=== PATIENT | female | born 1990 | race Caucasian/White ===

== ENCOUNTER 2016-11-13 19:18 | Emergency (ER) | payer BC ==
[2016-11-13 19:57] VITALS: BP 129/80; PULSE 94; RESP 18; TEMP 97.1
[2016-11-13] MEDS ORDERED: KETOROLAC 30 MG/ML 1 ML VIAL IM STA (20:20)
--- NOTE | 2016-11-13 20:27 | ED ---
Back Pain HPI - General Chief Complaint: Back Pain/Injury Stated Complaint: Sciatica Time Seen by Provider: 11/13/16 20:08 Source: patient Limitations: no limitations - History of Present Illness Initial Comments: Patient is a 26-year-old white female presenting to the emergency department with 2 day onset lumbar sacral pain radiating down her left leg to below her knees. Onset of symptoms 2 days ago. MD Complaint: back pain Onset/Timin -: days(s) Similar Symptoms Previously: Yes Place: other (Unsure when symptoms started) Radiation: right leg Severity: severe Severity scale (1-10): 10 Quality: burning, tingling Consistency: constant Improves With: immobilization Worsens With: walking Context: unknown Associated Symptoms: denies other symptoms Treatments Prior to Arrival: prescription analgesics - Related Data Home Medications Medication Instructions Recorded Confirmed Glucosamine/Chondro Mendes A 1 each PO DAILY 11/13/16 11/13/16 [Glucosamine-Chondroitin Tab] Ibuprofen 800 mg PO TID PRN 11/13/16 11/13/16 Norgestimate-Ethinyl Estradiol 1 each PO DAILY 11/13/16 11/13/16 [Ortho Tri-Cyclen Lo Tablet] [place]-3 Fatty Acids/Fish Oil [Fish 1 each PO DAILY 11/13/16 11/13/16 Oil 1,000 mg Capsule] Omeprazole 20 mg PO DAILY 11/13/16 11/13/16 Previous Rx's Medication Instructions Recorded HYDROcodone/APAP 5-325MG [[place] 1 tab PO Q4HR PRN #12 tab 11/13/16 5-325] Methocarbamol [Robaxin] 500 mg PO TID PRN #12 11/13/16 predniSONE 50 mg PO DAILY #5 tablet 11/13/16 Allergies Allergy/AdvReac Type Severity Reaction Status Date / Time No Known Allergies Allergy Verified 11/13/16 19:57 Review of Systems ROS Statement: Those systems with pertinent positive or pertinent negative responses have been documented in the HPI. ROS Other: All systems not noted in ROS Statement are negative. Past Medical History Past Medical History: GERD/Reflux Additional Past Medical History / Comment(s): Back Pain; TMJ History of Any Multi-Drug Resistant Organisms: None Reported Past Surgical History: No Surgical Hx Reported Past Psychological History: No Psychological Hx Reported Smoking Status: Former smoker Past Alcohol Use History: Occasional Past Drug Use History: None Reported General Exam Limitations: no limitations General appearance: alert, in no apparent distress Head exam: Present: atraumatic, normocephalic, normal inspection Eye exam: Present: normal appearance ENT exam: Present: normal exam, mucous membranes moist Neck exam: Present: normal inspection, full ROM. Absent: tenderness, lymphadenopathy Respiratory exam: Present: normal lung sounds bilaterally. Absent: respiratory distress, wheezes, rales, rhonchi, stridor Cardiovascular Exam: Present: regular rate, normal rhythm, normal heart sounds. Absent: systolic murmur, diastolic murmur, rubs, gallop, clicks GI/Abdominal exam: Present: soft, normal bowel sounds. Absent: distended, tenderness, guarding, rebound, rigid Right Hip exam: Present: normal inspection, full ROM. Absent: tenderness, swelling Upper Leg exam: Present: normal inspection, full ROM. Absent: tenderness, swelling Knee exam: Present: normal inspection, full ROM. Absent: tenderness, swelling Lower Leg exam: Present: normal inspection, full ROM. Absent: tenderness, swelling Ankle exam: Present: normal inspection, full ROM. Absent: tenderness, swelling Foot/Toe exam: Present: normal inspection, full ROM. Absent: tenderness, swelling Neurovascular tendon exam: Present: no vascular compromise. Absent: motor deficit, sensory deficit, tendon deficit, extremity cold to touch, abnormal 2- point discrimination, foot drop Gait: observed and normal Back exam: Present: normal inspection, tenderness (Point tenderness to left lower lumbar region), paraspinal tenderness. Absent: full ROM (Pain with active range of motion), CVA tenderness (R), CVA tenderness (L) Expanded Back exam: Absent: saddle anesthesia Back exam: Sciatic Notch Tenderness: Left Neurological exam: Present: alert, oriented X3, normal gait, other (No focal deficits noted). Absent: motor sensory deficit Psychiatric exam: Present: normal affect, normal mood Skin exam: Present: warm, dry, intact, normal color. Absent: rash Course Vital Signs 11/13/16 19:53 Temperature 97.1 F L Pulse Rate 94 Respiratory 18 Rate Blood Pressure 129/80 O2 Sat by Pulse 98 Oximetry Medical Decision Making - Medical Decision Making Lumbar radiculopathy. Patient given prescription for muscle relaxant, steroids , and pain medicine. Patient started to follow-up with orthopedic service. Patient agrees with treatment plan. No red flags present. Discharge instructions and return parameters reviewed. Disposition Clinical Impression: Lumbar radiculopathy Disposition: HOME SELF-CARE Condition: Good Instructions: Lumbar Radiculopathy (ED), Lower Back Exercises (ED) Additional Instructions: Please return to the emergency department if symptoms do not improve or get worse. Follow-up with primary care physician in a week and orthopedic surgeon if needed. Continue prescribed medications for pain as needed. May apply warm or cold compresses for comfort. Prescriptions: HYDROcodone/APAP 5-325MG [[place] 5-325] 1 tab PO Q4HR PRN #12 tab PRN Reason: Pain Methocarbamol [Robaxin] 500 mg PO TID PRN #12 PRN Reason: muscle spasm predniSONE 50 mg PO DAILY #5 tablet Referrals: Jennifer aGrcia MD [Primary Care Provider] - 1-2 days Molina Martinez PAC [PHYSICIAN CIT[employer] [facility]IST] - 1-2 days Time of Disposition: 20:27
== END 2016-11-13 20:43 | disposition home or self-care (01) ==
LOC: EC 19:18
DX: M54.16 Radiculopathy, lumbar region (principal); K21.9 Gastro-esophageal reflux disease without esophagitis; Z87.891 Personal history of nicotine dependence; Z79.3 Long term (current) use of hormonal contraceptives; Z79.899 Other long term (current) drug therapy
CPT/HCPCS: 99283; 96372; J1885

== ENCOUNTER 2017-10-12 21:05 | Emergency (ER) | payer OTHER ==
[2017-10-12 21:09] VITALS: BP 141/83; PULSE 98; RESP 20; TEMP 98.1
[2017-10-12] MEDS ORDERED: ORPHENADRINE 30 MG/ML 2 ML VIAL IM STA (21:32)
[2017-10-12] MEDS ORDERED: KETOROLAC 30 MG/ML 1 ML VIAL IM STA (21:32)
--- NOTE | 2017-10-12 21:51 | ED ---
General Adult HPI - General Chief complaint: Back Pain/Injury Stated complaint: back pain Time Seen by Provider: 10/12/17 21:10 Source: patient, RN notes reviewed Mode of arrival: ambulatory Limitations: no limitations - History of Present Illness Initial comments: 27-year-old female presents to the emergency department for a chief complaint of back pain 2 hours. Patient states she has a history of back pain for which [facility]. Patient denies any injuries causing the pain. She states she started noticing the pain when she was studying. She states this episode of pain is similar to the past episodes. Patient states it hurts most to stand up straight and feels better sitting. Patient denies any shooting pains down the legs. She denies any numbness or tingling in the legs. Patient denies any saddle anesthesia or bladder or bowel changes. Patient denies any chance of . Patient states she has had Toradol in the past which has helped. Patient states she's also had Robaxin which has helped to take the edge off as well. Patient denies any other complaints at this time. Patient denies any chance of . Patient denies shortness of breath, chest pain, abdominal pain, headaches, neck pain, nausea or vomiting. - Related Data Home Medications Medication Instructions Recorded Confirmed Glucosamine/Chondro Mendes A 1 each PO DAILY 11/13/16 11/13/16 [Glucosamine-Chondroitin Tab] Ibuprofen 800 mg PO TID PRN 11/13/16 11/13/16 Norgestimate-Ethinyl Estradiol 1 each PO DAILY 11/13/16 11/13/16 [Ortho Tri-Cyclen Lo Tablet] [place]-3 Fatty Acids/Fish Oil [Fish 1 each PO DAILY 11/13/16 11/13/16 Oil 1,000 mg Capsule] Omeprazole 20 mg PO DAILY 11/13/16 11/13/16 Previous Rx's Medication Instructions Recorded HYDROcodone/APAP 5-325MG [[place] 1 tab PO Q4HR PRN #12 tab 11/13/16 5-325] Methocarbamol [Robaxin] 500 mg PO TID PRN #12 11/13/16 predniSONE 50 mg PO DAILY #5 tablet 11/13/16 Ibuprofen [Motrin] 600 mg PO Q8HR PRN #20 tab 07/25/17 Methocarbamol [Robaxin-750] 750 mg PO TID PRN #30 tablet 07/25/17 Ibuprofen [Motrin] 600 mg PO Q8HR PRN #20 tab 10/12/17 Methocarbamol [Robaxin] 500 mg PO TID PRN #12 tab 10/12/17 Allergies Allergy/AdvReac Type Severity Reaction Status Date / Time No Known Allergies Allergy Verified 10/12/17 21:08 Review of Systems ROS Statement: Those systems with pertinent positive or pertinent negative responses have been documented in the HPI. ROS Other: All systems not noted in ROS Statement are negative. Past Medical History Past Medical History: GERD/Reflux Additional Past Medical History / Comment(s): Back Pain; TMJ History of Any Multi-Drug Resistant Organisms: None Reported Past Surgical History: No Surgical Hx Reported Additional Past Surgical History / Comment(s): wisdom teeth Past Psychological History: Anxiety Smoking Status: Former smoker Past Alcohol Use History: Occasional Past Drug Use History: None Reported General Exam Limitations: no limitations General appearance: alert, in no apparent distress Head exam: Present: atraumatic, normocephalic, normal inspection Eye exam: Present: normal appearance, PERRL, EOMI. Absent: scleral icterus, conjunctival injection, periorbital swelling Neck exam: Present: normal inspection, full ROM. Absent: tenderness, meningismus, lymphadenopathy Respiratory exam: Present: normal lung sounds bilaterally. Absent: respiratory distress, wheezes, rales, rhonchi, stridor Cardiovascular Exam: Present: regular rate, normal rhythm, normal heart sounds. Absent: systolic murmur, diastolic murmur, rubs, gallop, clicks Back exam: Present: paraspinal tenderness (Mild right sided lumbar tenderness). Absent: full ROM (Patient has limited range of motion of the low back. Patient has pain with extension.), tenderness, CVA tenderness (R), CVA tenderness (L), vertebral tenderness (No tenderness of the vertebrae from the cervical through the lumbar spine.) Neurological exam: Present: alert, oriented X3, CN II-XII intact Course Vital Signs 10/12/17 21:06 Temperature 98.1 F Pulse Rate 98 Respiratory 20 Rate Blood Pressure 141/83 O2 Sat by Pulse 100 Oximetry Medical Decision Making - Medical Decision Making 27-year-old female presents to the emergency department for a chief complaint of low back pain 2 hours. This is consistent with patient's past chronic back pain. Patient states she has a herniation at L4 for which she sees orthopedics. Patient denies any recent back injuries. Patient last had Motrin over 12 hours ago. Patient denies any chance of . Patient denies any saddle anesthesia or bladder or bowel changes. On exam patient has pain with extension of the low back and had a relief of pain with flexion. Patient was given a shot of Toradol and Norflex which helped with her pain. Patient was given a prescription for Motrin 600 and Robaxin. She is to [facility] with [facility] in one to 2 days. She is to return to the emergency Department if she has any worsening symptoms or bladder or bowel changes. Disposition Clinical Impression: Low back pain Disposition: HOME SELF-CARE Condition: Good Instructions: Acute Low Back Pain (ED) Additional Instructions: Please take ibuprofen and Robaxin as directed. Please follow-up with [facility] or primary care provider in one to 2 days. Return to the emergency department if you have any worsening symptoms or bladder or bowel changes. Prescriptions: Ibuprofen [Motrin] 600 mg PO Q8HR PRN #20 tab PRN Reason: Pain Methocarbamol [Robaxin] 500 mg PO TID PRN #12 tab PRN Reason: Pain Is patient prescribed a controlled substance at d/c from ED?: No Referrals: Jennifer Garcia MD [Primary Care Provider] - 1-2 days Time of Disposition: 21:49
== END 2017-10-12 22:23 | disposition home or self-care (01) ==
LOC: EC 21:05
DX: M54.5 Low back pain (principal); K21.9 Gastro-esophageal reflux disease without esophagitis; Z87.891 Personal history of nicotine dependence; Z79.3 Long term (current) use of hormonal contraceptives; Z79.899 Other long term (current) drug therapy
CPT/HCPCS: 99283; 96372 ×2; J2360; J1885

== ENCOUNTER 2018-10-24 16:00 | Emergency (ER) | payer OTHER ==
[2018-10-24] MEDS ORDERED: ONDANSETRON 4 MG/2 ML VIAL IVP STA (16:09)
[2018-10-24] MEDS ORDERED: SODIUM CHLORIDE 0.9% 500 ML 500 ML IV STA (16:09)
--- NOTE | 2018-10-24 16:13 | ED ---
General Adult HPI - General Chief complaint: Abdominal Pain Stated complaint: Gallbladder attack Time Seen by Provider: 10/24/18 16:05 Source: patient, RN notes reviewed, old records reviewed Mode of arrival: ambulatory - History of Present Illness Initial comments: 28-year-old female patient past medical history of TMJ disorder, chronic back pain presents ED approximately 2 days of right upper quadrant pain. Patient reports that she has right upper quadrant pain after eating. Patient reports some nausea without emesis. Patient denies any fevers or chills. Patient denies any previous issues with gallbladder or liver. Patient that she is not . Patient also has a secondary complaint of some minor pain in right shoulder which has been ongoing for approximately 2 days. Patient denies any injury. Patient denies any injuries. Patient denies any chest pain or s hortness of breath. Patient denies all other complaints. Systemic: Pt denies fatigue, myalgia, fever/chills, rash. Pt denies weakness, night sweats, weight loss. Neuro: Pt denies headache, visual disturbances, syncope or pre-syncope. HEENT: Pt denies ocular discharge or irritation, otalgia, rhinorrhea, pharyngitis or notable lymphadenopathy. Cardiopulmonary: Pt denies chest pain, SOB, heart palpitations, dyspnea on exertion. Abdominal/GI: Pt denies vomitting and diarrhea. : Pt denies dysuria, burning w/ urination, frequency/urgency. Denies new onset urinary or bowel incontinence. MSK: Pt denies myalgia, loss of strength or function in extremities. Neuro: Pt denies new onset weakness, paresthesias. - Related Data Home Medications Medication Instructions Recorded Confirmed Ibuprofen 400 mg PO Q6H PRN 11/13/16 10/24/18 Omeprazole 20 mg PO DAILY 11/13/16 10/24/18 Tri-Linya 1 tab PO HS 10/24/18 10/24/18 Allergies Allergy/AdvReac Type Severity Reaction Status Date / Time No Known Allergies Allergy Verified 10/24/18 16:15 Review of Systems ROS Statement: Those systems with pertinent positive or pertinent negative responses have been documented in the HPI. ROS Other: All systems not noted in ROS Statement are negative. Past Medical History Past Medical History: GERD/Reflux Additional Past Medical History / Comment(s): Back Pain; TMJ History of Any Multi-Drug Resistant Organisms: None Reported Past Surgical History: No Surgical Hx Reported Additional Past Surgical History / Comment(s): wisdom teeth Past Psychological History: Anxiety Smoking Status: Former smoker Past Alcohol Use History: Occasional Past Drug Use History: None Reported General Exam - General Exam Comments Initial Comments: Constitutional: NAD, AOX3, Pt has pleasant affect. HEENT: NC/AT, trachea midline, neck supple, no lymphadenopathy. Posterior pharynx non erythematous, without exudates. External ears appear normal, without discharge. Mucous membranes moist. Eyes PERRLA, EOM intact. There is no scleral icterus. No pallor noted. Cardiopulmonary: RRR, no murmurs, rubs or gallops, no JVD noted. Lungs CTAB in anterior and posterior boateng. No peripheral edema. Abdominal exam: Abdomen soft and non-distended. Very mild tenderness to palpation right upper quadrant. Leblanc sign negative. No ecchymoses, no guarding or rigidity. Bowel sounds active in LLQ. No hepatosplenomegaly. No ecchymosis Neuro: CN II-XII grossly intact. No nuchal rigidity. MSK: Full active range of motion of shoulder, no tenderness to palpation. No posterior calf tenderness bilaterally, homans sign negative bilaterally. Posterior tibialis and radial pulse +2 bilaterally. Sensation intact in upper and lower extremities. Full active ROM in upper and lower extremities, 5/5 stregnth. Course Vital Signs 10/24/18 16:02 Temperature 98 F Pulse Rate 100 Respiratory 20 Rate Blood Pressure 153/92 O2 Sat by Pulse 99 Oximetry Medical Decision Making - Medical Decision Making 28-year-old female patient past medical history of TMJ disorder, chronic back pain presents ED approximately 2 days of right upper quadrant pain. Patient re ports that she has right upper quadrant pain after eating. Patient reports some nausea without emesis. Patient denies any fevers or chills. Patient denies any previous issues with gallbladder or liver. Patient that she is not . Patient also has a secondary complaint of some minor pain in right shoulder which has been ongoing for approximately 2 days. Patient denies any injury. Patient denies any injuries. Patient denies any chest pain or shortness of breath. Patient denies all other complaints. Pt VSS, afebrile. Physical exam displayed: very mild tenderness to palpation right upper quadrant. Leblanc sign negative. Laboratory investigations non-impressive. Lactic acid within normal limits. Ultrasound of gallbladder displayed a reported sonographic Leblanc's sign, however no other findings consistent with cholecystitis. Negative for cholelithiasis. Liver function tests and alk phos are within normal limits. Shared decision making, patient will discharge with close outpatient follow-up. Patient will follow up with primary care provider tomorrow. Patient return to ER immediately if condition worsens in any way. Case discussed with Dr. Santo. - Lab Data Result diagrams: 10/24/18 16:15 10/24/18 16:15 Lab Results 10/24/18 10/24/18 10/24/18 Range/Units 16:15 16:15 16:15 WBC 10.3 (3.8-10.6) k/uL RBC 4.36 (3.80-5.40) m/uL Hgb 13.0 (11.4-16.0) gm/dL Hct 39.3 (34.0-46.0) % MCV 90.1 (80.0-100.0) fL MCH 29.7 (25.0-35.0) pg MCHC 33.0 (31.0-37.0) g/dL RDW 13.2 (11.5-15.5) % Plt Count 409 (150-450) k/uL Neutrophils % 58 % Lymphocytes % 33 % Monocytes % 4 % Eosinophils % 2 % Basophils % 0 % Neutrophils # 5.9 (1.3-7.7) k/uL Lymphocytes # 3.4 (1.0-4.8) k/uL Monocytes # 0.4 (0-1.0) k/uL Eosinophils # 0.2 (0-0.7) k/uL Basophils # 0.0 (0-0.2) k/uL Sodium 137 (137-145) mmol/L Potassium 4.2 (3.5-5.1) mmol/L Chloride 106 (98-107) mmol/L Carbon Dioxide 22 (22-30) mmol/L Anion Gap 9 mmol/L BUN 10 (7-17) mg/dL Creatinine 0.61 (0.52-1.04) mg/dL Est GFR (CKD-EPI)AfAm >90 (>60 ml/min/1.73 sqM) Est GFR (CKD-EPI)NonAf >90 (>60 ml/min/1.73 sqM) Glucose 97 (74-99) mg/dL Plasma Lactic Acid Geo (0.7-2.0) mmol/L Calcium 9.5 (8.4-10.2) mg/dL Total Bilirubin 0.5 (0.2-1.3) mg/dL AST 35 (14-36) U/L ALT 44 (9-52) U/L Alkaline Phosphatase 70 (38-126) U/L Total Protein 7.4 (6.3-8.2) g/dL Albumin 4.5 (3.5-5.0) g/dL Lipase 104 (23-300) U/L Urine Color Urine Appearance (Clear) Urine pH (5.0-8.0) Ur Specific [place] (1.001-1.035) Urine Protein (Negative) Urine Glucose (UA) (Negative) Urine Ketones (Negative) Urine Blood (Negative) Urine Nitrite (Negative) Urine Bilirubin (Negative) Urine Urobilinogen (<2.0) mg/dL Ur Leukocyte Esterase (Negative) Urine HCG, Qual Not Detected (Not Detectd) 10/24/18 10/24/18 Range/Units 16:15 16:15 WBC (3.8-10.6) k/uL RBC (3.80-5.40) m/uL Hgb (11.4-16.0) gm/dL Hct (34.0-46.0) % MCV (80.0-100.0) fL MCH (25.0-35.0) pg MCHC (31.0-37.0) g/dL RDW (11.5-15.5) % Plt Count (150-450) k/uL Neutrophils % % Lymphocytes % % Monocytes % % Eosinophils % % Basophils % % Neutrophils # (1.3-7.7) k/uL Lymphocytes # (1.0-4.8) k/uL Monocytes # (0-1.0) k/uL Eosinophils # (0-0.7) k/uL Basophils # (0-0.2) k/uL Sodium (137-145) mmol/L Potassium (3.5-5.1) mmol/L Chloride (98-107) mmol/L Carbon Dioxide (22-30) mmol/L Anion Gap mmol/L BUN (7-17) mg/dL Creatinine (0.52-1.04) mg/dL Est GFR (CKD-EPI)AfAm (>60 ml/min/1.73 sqM) Est GFR (CKD-EPI)NonAf (>60 ml/min/1.73 sqM) Glucose (74-99) mg/dL Plasma Lactic Acid Geo 1.0 (0.7-2.0) mmol/L Calcium (8.4-10.2) mg/dL Total Bilirubin (0.2-1.3) mg/dL AST (14-36) U/L ALT (9-52) U/L Alkaline Phosphatase (38-126) U/L Total Protein (6.3-8.2) g/dL Albumin (3.5-5.0) g/dL Lipase (23-300) U/L Urine Color Light Yellow Urine Appearance Clear (Clear) Urine pH 5.5 (5.0-8.0) Ur Specific [place] 1.011 (1.001-1.035) Urine Protein Negative (Negative) Urine Glucose (UA) Negative (Negative) Urine Ketones Negative (Negative) Urine Blood Negative (Negative) Urine Nitrite Negative (Negative) Urine Bilirubin Negative (Negative) Urine Urobilinogen <2.0 (<2.0) mg/dL Ur Leukocyte Esterase Negative (Negative) Urine HCG, Qual (Not Detectd) Disposition Clinical Impression: Abdominal pain Disposition: HOME SELF-CARE Condition: Stable Instructions (If sedation given, give patient instructions): Abdominal Pain (ED) Additional Instructions: Patient to adhere to previously discussed treatment plan and will take medication(s) as directed. Patient to follow up with PCP in 1-2 days. Patient to return to ED if symptoms do not improve. Follow-up with primary care provider tomorrow. Return immediately to ER if condition worsens or pain returns. Is patient prescribed a controlled substance at d/c from ED?: No Referrals: Jennifer Garcia MD [Primary Care Provider] - 1-2 days
[2018-10-24 16:37] LABS: Appearance,Urine Clear (Clear); Bilirubin,Urine Negative (Negative); Blood,Urine Negative (Negative); Color,Urine Light Yellow; Glucose,Urine (UA) Negative (Negative); Ketones,Urine Negative (Negative); Leukocyte Esterase,Urine Negative (Negative); Nitrite,Urine Negative (Negative); PH, Urine 5.5 (5.0-8.0); Protein,Urine Negative (Negative); Specific Gravity,Urine 1.011 (1.001-1.035); Urobilinogen,Urine <2.0 mg/dL (<2.0)
[2018-10-24 16:40] LABS: ALT 44 U/L (9-52); AST 35 U/L (14-36); Albumin 4.5 g/dL (3.5-5.0); Alkaline Phosphatase 70 U/L (38-126); Anion Gap 9 mmol/L; Blood Urea Nitrogen 10 mg/dL (7-17); Calcium 9.5 mg/dL (8.4-10.2); Carbon Dioxide 22 mmol/L (22-30); Chloride 106 mmol/L (98-107); Glucose 97 mg/dL (74-99); Lipase 104 U/L (23-300); Potassium 4.2 mmol/L (3.5-5.1); Sodium 137 mmol/L (137-145); Total Bilirubin 0.5 mg/dL (0.2-1.3); Total Protein 7.4 g/dL (6.3-8.2)
[2018-10-24 16:51] LABS: Basophils % (A) 0 %; Eosinophils # (A) 0.2 k/uL (0-0.7); Eosinophils % (A) 2 %; HCT 39.3 % (34.0-46.0); Lymphocytes # (A) 3.4 k/uL (1.0-4.8); Lymphocytes % (A) 33 %; MCH 29.7 pg (25.0-35.0); MCV 90.1 fL (80.0-100.0); Mean Platelet Volume 7.6; Monocytes # (A) 0.4 k/uL (0-1.0); Monocytes % (A) 4 %; Neutrophils # (A) 5.9 k/uL (1.3-7.7); Neutrophils % (A) 58 %; Platelet Count 409 k/uL (150-450); RBC 4.36 m/uL (3.80-5.40); RDW 13.2 % (11.5-15.5); WBC 10.3 k/uL (3.8-10.6)
--- NOTE | 2018-10-24 16:59 | US ---
EXAMINATION TYPE: US gallbladder DATE OF EXAM: 10/24/2018 COMPARISON: NONE CLINICAL HISTORY: Pain. RUQ pain and nausea, GERD EXAM MEASUREMENTS: Liver Length: 17.0 cm Gallbladder Wall: 0.3 cm CBD: 0.5 cm (top normal caliber is 0.6 mm) Right Kidney: 10.0 x 4.3 x 5.4 cm Pancreas: Obscured by bowel gas Liver: appears wnl as visualized Gallbladder: The gallbladder happens to be anatomically positioned quite close to the overlying skin. There is no evidence of cholelithiasis. Evidence for sonographic Leblanc's sign: Reportedly positive for sonographic Leblanc's sign. CBD: appears wnl Right Kidney: No evidence of hydronephrosis IMPRESSION: Reportedly positive sonographic Leblanc's sign, which is a sensitive but nonspecific sonographic findi ng. LFT correlation can add specificity. Negative for cholelithiasis or sonographic focal findings of cholecystitis.
[2018-10-24 17:46] VITALS: BP 133/87; PULSE 85; RESP 18; TEMP 98.9
== END 2018-10-24 17:49 | disposition home or self-care (01) ==
LOC: EC 16:00
DX: R10.11 Right upper quadrant pain (principal); R11.0 Nausea; M25.511 Pain in right shoulder; K21.9 Gastro-esophageal reflux disease without esophagitis; Z87.891 Personal history of nicotine dependence; Z79.3 Long term (current) use of hormonal contraceptives; Z79.899 Other long term (current) drug therapy
CPT/HCPCS: 36415; 80053; 83605; 83690; 85025; 81003; 81025; 76705; 99284; 96374; 96361; J2405

== ENCOUNTER → 2021-02-04 | Outpatient (CLI) | payer MEDICAID | END | disposition home or self-care (01) | LOC: LABWHC1 14:30 | PROVIDERS: ATTEND Emergency Medicine | DX: Z20.822 Contact with and (suspected) exposure to COVID-19 (principal) | CPT/HCPCS: 87635; C9803 ==

== ENCOUNTER → 2021-02-05 | Outpatient (CLI) | payer MEDICAID | END | disposition home or self-care (01) | LOC: LABWHC1 16:10 | PROVIDERS: ATTEND Emergency Medicine | DX: Z20.822 Contact with and (suspected) exposure to COVID-19 (principal) | CPT/HCPCS: U0003; C9803; U0005 ==

== ENCOUNTER 2022-04-03 22:33 | Emergency (ER) | payer MEDICAID, OTHER ==
[2022-04-03 22:44] VITALS: BP 130/66; PULSE 60; RESP 19; TEMP 98
== END 2022-04-03 22:46 | disposition home or self-care (01) ==
LOC: EC 22:33
DX: Z13.0 Encounter for screening for diseases of the blood and blood-forming organs and certain disorders involving the immune mechanism (principal)
CPT/HCPCS: 99499

== ENCOUNTER 2022-05-14 22:17 | Emergency (ER) | payer MEDICAID, OTHER ==
[2022-05-14 23:11] VITALS: RESP 16
[2022-05-15] MEDS ORDERED: methylPREDNISolone SOD SUCCI 125 MG/2 ML VIAL IV STA (00:02)
[2022-05-15] MEDS ORDERED: diphenhydrAMINE 50 MG/ML 1 ML VIAL IVP STA (00:02)
[2022-05-15] MEDS ORDERED: SODIUM CHLORIDE 0.9% 1,000 ML IV STA (00:02)
[2022-05-15] MEDS ORDERED: FAMOTIDINE 20 MG/2 ML VIAL IV STA (00:02)
[2022-05-15 00:22] LABS: Basophils % (A) 0 %; Eosinophils # (A) 0.1 k/uL (0-0.7); Eosinophils % (A) 1 %; HCT 38.3 % (34.0-46.0); HGB 13.3 gm/dL (11.4-16.0); Lymphocytes # (A) 2.9 k/uL (1.0-4.8); Lymphocytes % (A) 28 %; MCH 31.6 pg (25.0-35.0); MCHC 34.7 g/dL (31.0-37.0); MCV 90.9 fL (80.0-100.0); Mean Platelet Volume 8.1; Monocytes # (A) 0.4 k/uL (0-1.0); Monocytes % (A) 4 %; Neutrophils # (A) 6.7 k/uL (1.3-7.7); Neutrophils % (A) 64 %; Platelet Count 357 k/uL (150-450); RBC 4.22 m/uL (3.80-5.40); RDW 13.1 % (11.5-15.5); WBC 10.4 k/uL (3.8-10.6)
[2022-05-15 01:11] LABS: ALT 41 U/L (4-34); African American GFR (CKD) >90 (>60 ml/min/1.73 sqM); Albumin 4.6 g/dL (3.5-5.0); Anion Gap 9 mmol/L; Blood Urea Nitrogen 12 mg/dL (7-17); Glucose 106 mg/dL (74-99); Non-African American GFR(CKD) >90 (>60 ml/min/1.73 sqM); Potassium 3.9 mmol/L (3.5-5.1); Sodium 138 mmol/L (137-145); Total Bilirubin 0.3 mg/dL (0.2-1.3); Total Protein 7.4 g/dL (6.3-8.2)
--- NOTE | 2022-05-15 01:35 | ED ---
General Adult HPI - General Chief complaint: Allergic Reaction Stated complaint: Dizziness,weakness Time Seen by Provider: 05/14/22 23:08 Source: patient, RN notes reviewed Mode of arrival: ambulatory Limitations: no limitations - History of Present Illness Initial comments: 31-year-old female presents to the emergency Department with complaints of rash resulting from an ALLERGIC reaction to amoxicillin. Patient states she had taken 4 doses of amoxicillin prior to onset of rash. States she was prescribed this for strep throat. Amoxicillin was discontinued today and Zithromax was prescribed. States she continues to feel poorly. Describes an episode in which she had rapid shallow breathing followed by facial numbness and tremors in her arms. States these symptoms resolved prior to arrival but was concerned due to the rash and allergic reaction. Denies fever, chills, difficulty swallowing, difficulty breathing, nausea, and vomiting. - Related Data Home Medications Medication Instructions Recorded Confirmed Ibuprofen 400 mg PO Q6H PRN 11/13/16 10/24/18 Omeprazole 20 mg PO DAILY 11/13/16 10/24/18 Tri-Linya 1 tab PO HS 10/24/18 10/24/18 Allergies Allergy/AdvReac Type Severity Reaction Status Date / Time amoxicillin Allergy Rash/Hives Verified 05/14/22 22:28 Review of Systems ROS Statement: Those systems with pertinent positive or pertinent negative responses have been documented in the HPI. ROS Other: All systems not noted in ROS Statement are negative. Past Medical History Past Medical History: GERD/Reflux Additional Past Medical History / Comment(s): Back Pain; TMJ History of Any Multi-Drug Resistant Organisms: None Reported Past Surgical History: No Surgical Hx Reported Additional Past Surgical History / Comment(s): wisdom teeth Past Psychological History: Anxiety Smoking Status: Never smoker Past Alcohol Use History: Occasional Past Drug Use History: None Reported General Exam Limitations: no limitations General appearance: alert, in no apparent distress ENT exam: Present: normal exam, normal oropharynx, mucous membranes moist, other (no angioedema) Expanded Mouth exam: Present: normal external inspection Throat exam: normal inspection Respiratory exam: Present: normal lung sounds bilaterally. Absent: respiratory distress, wheezes, rales, rhonchi, stridor, chest wall tenderness Cardiovascular Exam: Present: regular rate, normal rhythm, normal heart sounds. Absent: systolic murmur, diastolic murmur, rubs, gallop, clicks GI/Abdominal exam: Present: soft, normal bowel sounds. Absent: distended, tenderness, guarding, rebound, rigid Neurological exam: Present: alert, oriented X3, CN II-XII intact, normal gait Expanded Patient oriented to: Present: person, place, time Speech: Present: fluid speech Cerebellar function: Romberg: Normal Eye Response: (4) open spontaneously Motor Response: (6) obeys commands Verbal Response: (5) oriented [place] Total: 15 Psychiatric exam: Present: normal affect, normal mood Skin exam: Present: warm, dry, intact, rash (scattered maculopapular rash on bilateral upper extremities extending from fingers to axillae and shoulders. Mild itching discomfort endorsed. ) Course Vital Signs 05/14/22 05/14/22 05/15/22 22:26 23:10 02:11 Temperature 98.0 F 97.6 F 98.2 F Pulse Rate 108 H 90 78 Respiratory 20 16 16 Rate Blood Pressure 174/108 164/112 130/78 O2 Sat by Pulse 99 99 99 Oximetry - Reevaluation(s) Reevaluation #1: 05/15/22 02:04 Upon reassessment, patient reports feeling improved. Blood pressure does remain elevated and we did discuss this. She will follow-up with her PCP for further evaluation and treatment. Medical Decision Making - Medical Decision Making This is a pleasant 31-year-old female who presents to the emergency department for evaluation after developing an ALLERGIC reaction to amoxicillin. Amoxicillin was discontinued and Zithromax was started per urgent care. However patient's rash persists and she is feeling anxious. Upon exam, patient is well- appearing and in no acute distress. No angioedema, shortness of breath, wheezing, or nausea and vomiting. Scattered maculopapular rash noted on bilateral upper extremities. Laboratory studies were obtained and are unremarkable. IV fluids, Benadryl, Pepcid, and Solu-Medrol were given with improvement. Patient was noted to be hypertensive initially, though it did improve dramatically. I discussed this with patient and she walter follow-up with her PCP for further evaluation and treatment. Encouraged to take Benadryl OTC if itching and rash persist. Strict return parameters were discussed in detail. Patient verbalizes understanding and agrees with this plan. Attending: Hansa. - Lab Data Result diagrams: 05/15/22 00:11 05/15/22 00:11 Lab Results 05/15/22 05/15/22 Range/Units 00:11 00:11 WBC 10.4 (3.8-10.6) k/uL RBC 4.22 (3.80-5.40) m/uL Hgb 13.3 (11.4-16.0) gm/dL Hct 38.3 (34.0-46.0) % MCV 90.9 (80.0-100.0) fL MCH 31.6 (25.0-35.0) pg MCHC 34.7 (31.0-37.0) g/dL RDW 13.1 (11.5-15.5) % Plt Count 357 (150-450) k/uL MPV 8.1 Neutrophils % 64 % Lymphocytes % 28 % Monocytes % 4 % Eosinophils % 1 % Basophils % 0 % Neutrophils # 6.7 (1.3-7.7) k/uL Lymphocytes # 2.9 (1.0-4.8) k/uL Monocytes # 0.4 (0-1.0) k/uL Eosinophils # 0.1 (0-0.7) k/uL Basophils # 0.0 (0-0.2) k/uL Sodium 138 (137-145) mmol/L Potassium 3.9 (3.5-5.1) mmol/L Chloride 105 (98-107) mmol/L Carbon Dioxide 24 (22-30) mmol/L Anion Gap 9 mmol/L BUN 12 (7-17) mg/dL Creatinine 0.67 (0.52-1.04) mg/dL Est GFR (CKD-EPI)AfAm >90 (>60 ml/min/1.73 sqM) Est GFR (CKD-EPI)NonAf >90 (>60 ml/min/1.73 sqM) Glucose 106 H (74-99) mg/dL Calcium 8.9 (8.4-10.2) mg/dL Total Bilirubin 0.3 (0.2-1.3) mg/dL AST 35 (14-36) U/L ALT 41 H (4-34) U/L Alkaline Phosphatase 97 (38-126) U/L Total Protein 7.4 (6.3-8.2) g/dL Albumin 4.6 (3.5-5.0) g/dL Disposition Clinical Impression: Allergic reaction Disposition: HOME SELF-CARE Condition: Stable Instructions (If sedation given, give patient instructions): General Allergic Reaction (ED) Additional Instructions: You may take Benadryl every 6 hours if needed for rash or itching. Use cautiously as it may make you drowsy. Continue taking your steroid and Zithromax as prescribed by urgent care. Periodically monitor your blood pressure and follow up with PCP for further evaluation and treatment. If you develop any swelling in your mouth or lips, shortness of breath, tightness in her chest, or difficulty breathing, return to the emergency department immediately or call 911. Is patient prescribed a controlled substance at d/c from ED?: No Referrals: Jennifer Garcia MD [Primary Care Provider] - 1-2 days Time of Disposition: 02:07
[2022-05-15 01:42] LABS: AST 35 U/L (14-36); Alkaline Phosphatase 97 U/L (38-126); Calcium 8.9 mg/dL (8.4-10.2); Carbon Dioxide 24 mmol/L (22-30); Chloride 105 mmol/L (98-107)
[2022-05-15 02:12] VITALS: BP 130/78; PULSE 78; TEMP 98.2
== END 2022-05-15 02:12 | disposition home or self-care (01) ==
LOC: EC 22:17
DX: R21 Rash and other nonspecific skin eruption (principal); T36.0X5A Adverse effect of penicillins, initial encounter; Y92.89 Other specified places as the place of occurrence of the external cause
CPT/HCPCS: 36415; 80053; 85025; 99283; 96374; 96375; 96361; J1200; J2930

== ENCOUNTER → 2022-09-04 | Outpatient (CLI) | payer MEDICAID ==
[2022-09-04 17:33] LABS: Basophils # (A) 0.03 X 10*3/uL (0.00-0.10); Basophils % (A) 0.4 %; Eosinophils # (A) 0.22 X 10*3/uL (0.04-0.35); Eosinophils % (A) 2.7 %; HCT 40.9 % (37.2-46.3); HGB 13.2 g/dL (12.0-15.0); Immature Grans, Automated 0.2 %; Lymphocytes # (A) 3.39 X 10*3/uL (0.90-5.00); Lymphocytes % (A) 41.7 %; MCH 30.1 pg (27.0-32.0); MCHC 32.3 g/dL (32.0-37.0); MCV 93.2 fL (80.0-97.0); Mean Platelet Volume 10.1 fL (9.5-12.2); Monocytes # (A) 0.53 X 10*3/uL (0.20-1.00); Monocytes % (A) 6.5 %; NRBC Per 100 WBC 0 /100 WBCS (0.0-0.0); Neutrophils # (A) 3.94 X 10*3/uL (1.80-7.70); Neutrophils % (A) 48.5 %; Platelet Count 452 X 10*3/uL (140-440); RBC 4.39 X 10*6/uL (4.10-5.20); RDW 12.6 % (11.5-14.5); WBC 8.13 X 10*3/uL (4.50-10.00)
[2022-09-04 20:36] LABS: ALT 37 U/L (8-44); AST 26 U/L (13-35); African American GFR (CKD) 126.3 (60.0-200.0); Albumin 4.5 g/dL (3.8-4.9); Albumin/Globulin Ratio 1.71 (1.60-3.17); Alkaline Phosphatase 85 U/L (41-126); BUN/Creat Ratio 18.77 Ratio (12.00-20.00); Blood Urea Nitrogen 13.7 mg/dL (9.0-27.0); Calcium 9.4 mg/dL (8.7-10.3); Carbon Dioxide 23.1 mmol/L (20.0-27.5); Chloride 104 mmol/L (96-109); Globulin 2.6 g/dL (1.6-3.3); Glucose 86 mg/dL (70-110); LDL Cholesterol,Calculated 79.2 mg/dL (0.0-131.0); Potassium 4.4 mmol/L (3.5-5.5); Sodium 138 mmol/L (135-145); Total Bilirubin <0.15 mg/dL (0.30-1.20); Total Protein 7.1 g/dL (6.2-8.2)
== END | disposition home or self-care (01) ==
LOC: LABWHC1 10:51
PROVIDERS: ATTEND Internal Medicine
DX: Z11.59 Encounter for screening for other viral diseases (principal); I10 Essential (primary) hypertension; G43.909 Migraine, unspecified, not intractable, without status migrainosus
CPT/HCPCS: 36415; 80053; 80061; 82088; 82607; 82746; 83735; 84439; 84443; 85025; 86803

== ENCOUNTER 2023-03-01 11:21 | Day surgery (SDC) | payer MEDICAID ==
[2023-03-01] MEDS ORDERED: LACTATED RINGERS 1,000 ML IV SCH (12:31)
[2023-03-01 12:41] VITALS: RESP 16; TEMP 97.2
[2023-03-01] MEDS ORDERED: PROPOFOL 10 MG/ML 20 ML VIAL IV ONE (12:45)
--- NOTE | 2023-03-01 12:53 | P.PCN ---
Date of Procedure: 03/01/23 Procedure(s) Performed: BRIEF HISTORY: Patient is a 32-year-old, pleasant, white female scheduled for an upper endoscopy as a part of evaluation of long-standing history of GERD for which she is on omeprazole 40 mg daily and still has breakthrough symptoms on a frequent basis. PROCEDURE PERFORMED: Esophagogastroduodenoscopy with biopsy. PREOPERATIVE DIAGNOSIS: Long-standing history of GERD. IV sedation per anesthesia. PROCEDURE: After informed consent was obtained, the patient was brought into [facility] endoscopy unit. IV sedation was administered by Anesthesia under continuous monitoring. Initially the Olympus GIF-140 video endoscope was inserted into the mouth. Esophagus intubated without any difficulty. It was gradually advanced into the stomach and duodenum and carefully examined. The bulb and the second part of the duodenum appeared normal. The scope at this time was withdrawn to the stomach, adequately insufflated with air, and upon careful examination, mucosa of the antrum, had linear areas of erythema consistent with gastritis and biopsies were done from this area. Mucosa of the body, cardia and the fundus appeared normal. The scope was then withdrawn into the esophagus. The GE junction was located at 39 cm from the incisors. There was one superficial erosion noted in the distal esophagus consistent with LA grade a reflux esophagitis. Rest of esophagus appeared normal and the patient tolerated the procedure well. IMPRESSION: 1. Linear areas of erythema in the antrum consistent with gastritis. 2. 1 superficial erosion at the GE junction consistent with LA grade A reflux esophagitis. RECOMMENDATIONS: The findings of this examination were discussed with the patien t as well as a family. She was advised to follow with the biopsy results. Continue with omeprazole 20 mg daily half hour before the last number the and she was briefly educated about antireflux measures..
[2023-03-01 13:11] VITALS: PULSE 94
[2023-03-01 13:30] VITALS: BP 117/68
== END 2023-03-01 13:58 | disposition home or self-care (01) ==
LOC: ORWHC2ENDO 11:21
PROVIDERS: ATTEND Internal Medicine Gastroenterology
DX: K29.50 Unspecified chronic gastritis without bleeding (principal); K21.00 Gastro-esophageal reflux disease with esophagitis, without bleeding; I10 Essential (primary) hypertension; F32.A Depression, unspecified; Z79.82 Long term (current) use of aspirin; Z79.899 Other long term (current) drug therapy; Z88.6 Allergy status to analgesic agent
CPT/HCPCS: 81025; 88305; 43239; J2704

== ENCOUNTER → 2023-03-03 | Outpatient (CLI) | payer MEDICAID ==
--- NOTE | 2023-03-03 11:17 | P.SLEEP ---
History of Present Illness DATE: 03/03/2023 CONSULTATION/NEW PATIENT EVALUATION HISTORY OF PRESENT ILLNESS/SLEEP-WAKE EVALUATION: 32-year-old lady had been evaluated in the sleep center for possible obstructive sleep apnea hypopnea syndrome. SLEEP SCHEDULE: Usually sleep schedule from 9 AM to 5 PM on weekdays and from midnight until 1:32 PM on weekend. 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 FALLING ASLEEP: Sometimes patient has difficulties with falling asleep. DURING SLEEP: Patient snores, wakes up from sleep with choking and dry mouth 3 times. Positive history of nocturia up to 3 times during the night No history of hypnogogical hallucinations, sleep paralysis, or cataplexy. DURING THE DAY/WAKE STATE: In the morning patient wake up tired, has episodes of anxiety. [place] sleepiness scale is increased to 11. Usually patient doesn't take naps. PAST MEDICAL HISTORY: Hypertension, headaches, acid reflux, depression, anxiety. PAST SURGICAL HISTORY: None. MEDICATIONS: Sumatriptan, hydrochlorothiazide 25 mg once a day, escitalopram 5 mg once a day, exedrine as needed, sucralfate . SOCIAL HISTORY: Vape occasionally. FAMILY HISTORY: Hypertension, asthma, emphysema, cancer, thyroid problems. REVIEW OF SYSTEMS: Snoring, multiple awakenings from sleep with choking. No fevers. No double vision. No recent chest pain. No shortness of breath. No abdominal pain. No bleeding episodes. No blood in urine. No seizure episodes. PHYSICAL EXAMINATION: GENERAL: A pleasant patient without any distress. VITAL SIGNS: BP 125/87 , HR 85 , RR 16 , weight 264.4 pounds, height 5 foot 5 inches, body mass index 43.9 . HEENT: PERRLA, EOMI. Evaluation of oropharynx showed tongue protrudes midline, low position of soft palate Mallampati 4. NECK: Supple. No JVD. Thyroid is not palpable. 18 inches in circumference. LUNGS: Clear to percussion and to auscultation. Good air exchange. No wheezing or rhonchi. HEART: S1, S2 regular. No murmurs, gallops or rubs. ABDOMEN: Soft and nontender. Bowel sounds are present. No organomegaly appreciated. EXTREMITIES: No clubbing or cyanosis. RUBY ON RA[employer]S WEB DEVELOPER: Awake, alert, and oriented x3. Cranial nerves 2 to 7 intact. There is no fasciculation or atrophy noted. No focal deficits observed. ASSESSMENT: 1. Snoring, multiple awakenings from sleep with choking and nocturia, extremely low position of soft palate Mallampati 4, wide neck 18 inches in circumference. Obstructive sleep apnea hypopnea syndrome. 2. Obesity, BMI 43.9. 3. Hypertension. 4. Headaches. 5 depression. 6 . anxiety. 7. Acid reflux. PLAN: 1. Polysomnography for evaluation of patient's breathing during sleep. 2. CPAP/BiPAP titration if sleep study confirms obstructive sleep apnea- hypopnea syndrome. 3. Preferable position during sleep on the side. 4. No driving if patient feels any sleepiness. Patient is aware of civil and criminal liability for unsafe driving. 5. Sleep hygiene with regular sleep time for at least 7.5-8 hours. 6. Watching and losing weight. Thank you very much for referring this patient for consultation. Sincerely, Foster Denson MD, PhD, FAASM. Diplomat of [place] [employer], Sleep Medicine Board by [place] [employer] [place] [employer] Agricultural Chemist of [facility] [place] Past Medical History Past Medical History: GERD/Reflux, Hypertension Additional Past Medical History / Comment(s): Back Pain; TMJ History of Any Multi-Drug Resistant Organisms: None Reported Past Surgical History: No Surgical Hx Reported Additional Past Surgical History / Comment(s): wisdom teeth Past Anesthesia/Blood Transfusion Reactions: No Reported Reaction Smoking Status: Light tobacco smoker Medications and Allergies Home Medications Medication Instructions Recorded Confirmed Type Ibuprofen 400 mg PO Q6H PRN 11/13/16 03/01/23 History Omeprazole 40 mg PO DAILY 11/13/16 03/01/23 History Aspirin/Acetaminophen/Caffeine 1 each PO DAILY PRN 02/28/23 03/01/23 History [Excedrin Migraine Caplet] Escitalopram [Lexapro] 5 mg PO 1400 02/28/23 03/01/23 History hydroCHLOROthiazide 25 mg PO 1400 02/28/23 03/01/23 History Allergies Allergy/AdvReac Type Severity Reaction Status Date / Time amoxicillin Allergy Rash/Hives Verified 03/01/23 12:32 Sleep Note - Sleep Note Sleep Note: Temperature: Pulse Rate: Respiratory Rate: Blood Pressure: SpO2: Height: Weight: BMI: Neck Circumference:
== END ==
LOC: 3 N SLEEP 10:38
PROVIDERS: ATTEND Internal Medicine
DX: G47.33 Obstructive sleep apnea (adult) (pediatric) (principal); E66.9 Obesity, unspecified; I10 Essential (primary) hypertension; R51.9 Headache, unspecified; F32.A Depression, unspecified; F41.9 Anxiety disorder, unspecified; K21.9 Gastro-esophageal reflux disease without esophagitis; Z68.41 Body mass index [BMI] 40.0-44.9, adult; Z88.0 Allergy status to penicillin; Z79.82 Long term (current) use of aspirin; Z72.0 Tobacco use
CPT/HCPCS: 99211

== ENCOUNTER 2023-04-24 19:30 | Outpatient (CLI) | payer MEDICAID ==
--- NOTE | 2023-04-28 11:34 | P.PCN ---
Description of Procedure: POLYSOMNOGRAPHY REPORT PROCEDURE(S)/DATE(S): Polysomnography 04/24/2023 CLINICAL: Patient has been seen in the sleep center for evaluation of obstructive sleep apnea-hypopnea syndrome. Please see my consultation. Sleep study has been done for evaluation of patient breathing during the sleep. PROCEDURE: The standard montage for clinical polysomnography included the electroencephalogram, the electrooculogram, the mentalis surface electromyography and Lead II cardiography. The respiratory battery consisted of measurements of nasal/buccal air flow, pressure transducer measurements from nose, thoracic and/or abdominal effort and intercostal surface electromyography. Video monitoring has been done to check for any parasomnia events. Nocturnal oxyhemoglobin saturations were obtained by finger oximetry. Step-bravo titration with positive airway pressure was utilized to control the respiratory events, if necessary. RESULTS: During the diagnostic sleep study sleep efficiency was normal 89.6 %. Latency to sleep onset was normal 9.0 min. Sleep architecture showed stage NI was normal 6.4 %, Delta sleep was normal 11.0 %, REM sleep was decreased to 14.1 %. Respiratory channel showed 3 obstructive apneas, 0 mixed apneas, 3 central apneas, 165 hypopneas with lowest oxygen level 87 %. Total apnea hypopnea index was 26.8. Heart rate was in the range between 72 and 86, average 79. EMG showed 13.5 periodic limb movements per hour with 0.2 micro-arousals per hour. IMPRESSIONS: 1. Moderate, close to severe obstructive sleep apnea hypopnea syndrome. 2. Mild periodic limb movements have been documented. Please see other impressions from consultation PLAN: 1. The patient will have PAP titration for correction of respiratory abnormalities during the sleep. 2. Losing weight program. 3. Sleep hygiene with regular time in bed for at least 7-1/2 hours. 4. No driving if feeling sleepiness. 5. Please check iron profile including ferritin level. Low level of iron may increase the risk for periodic limb movements. Thank you very much for allowing me to participate in the management of your patient. Sincerely, Foster Denson MD, PhD, FAASM. Diplomat of [place] [employer], Sleep Medicine Board by [place] [employer] Medical Billing Instructor of [facility] [place]
== END 2023-04-25 06:00 | disposition home or self-care (01) ==
LOC: 3 N SLEEP 19:30
PROVIDERS: ATTEND Internal Medicine
DX: G47.33 Obstructive sleep apnea (adult) (pediatric) (principal); Z88.0 Allergy status to penicillin; Z87.891 Personal history of nicotine dependence
CPT/HCPCS: 95810

== ENCOUNTER 2023-08-14 19:34 | Outpatient (CLI) | payer MEDICAID ==
--- NOTE | 2023-08-18 10:40 | P.PCN ---
Description of Procedure: CLINICAL: Titration with positive air pressure has been done for correction of respiratory abnormalities during sleep. DESCRIPTION OF PROCEDURE: The standard montage for clinical polysomnography included the electroencephalogram, the electrocardiogram, the mentalis surface electromyography and Lead II cardiography. The respiratory battery consisted of measurements of nasal /buccal air flow, pressure transducer measurements from the nose, thoracic and /or abdominal effort and intercostal surface electromyography. Video monitoring has been done to check for any parasomnia events. Nocturnal oxyhemoglobin saturations were obtained by finger oximetry. Step-bravo titration with positive airway pressure was utilized to control respiratory events. Raw data of sleep recording has been reviewed and is adequate. RESULTS: Sleep efficiency was decreased to 70.7 %. Latency to sleep onset was significantly prolonged 41.5 minutes.]. Sleep architecture showed stage N1 short 3.0 %, Delta sleep was borderline 6.6 %, REM sleep was slightly decreased to 18.3 %. Heart rate was minimum 79 BPM, maximum 91 BPM, average 84 BPM. EMG showed 0 periodic limb movements per hour . PAP titration have been done with CPAP up to the pressure 11 cm H2O. The best results were at the pressure 11 cm H2O. Apnea hypopnea index reduced to 0. IMPRESSION: 1. Obstructive sleep apnea hypopnea syndrome on controle with PAP treatment. 2. No periodic limb movements have been documented. Please see other impressions from consultation. PLAN: 1. The patient will have treatment with positive air pressure equipment with the level of pressure AutoPAP 6-12 cm H2O and should use it every night for the whole night. 2. Watching and losing weight. 3. Sleep hygiene with regular time in bed for at least 8 hours. 4. No driving if feeling any sleepiness. 5. I will see the patient for follow up visit to explain the results of the test, recommendations, check compliance with treatment and make any necessary adjustment related to mask fitting, pressure and humidification. Thank you very much for allowing me to participate in the management of your pa tient. Sincerely, Foster Denson MD, PhD, FAASM Diplomat of [place] [employer] Sleep Medicine Board of [place] [employer] of [employer] Medicine Hydroelectric Plant Technician of [facility] [place]
== END 2023-08-15 05:30 | disposition home or self-care (01) ==
LOC: 3 N SLEEP 19:34
PROVIDERS: ATTEND Internal Medicine
DX: G47.33 Obstructive sleep apnea (adult) (pediatric) (principal); Z88.0 Allergy status to penicillin; Z79.82 Long term (current) use of aspirin; Z87.891 Personal history of nicotine dependence
CPT/HCPCS: 95811

== ENCOUNTER → 2023-11-30 | Outpatient (CLI) | payer MEDICAID ==
[2023-11-30 15:41] VITALS: BP 132/85; PULSE 102; RESP 16; TEMP 98
--- NOTE | 2023-11-30 16:06 | P.PROGSL ---
Subjective DATE: [] FOLLOW UP VISIT. Patient with obstructive sleep apnea hypopnea syndrome return to sleep center for follow-up visit. Recently patient had sleep study which documented obstructive sleep apnea hypopnea syndrome. Patient was initiated on PAP therapy and today is first visit after treatment was started. Patient was able to use PAP equipment every night for the whole night. Patient developed feeling of gas in the stomach in the morning after using CPAP. [place] sleepiness scale is, which is normal4. I checked information from PAP unit. PAP unit pressure 5-12, average 10.7 cm H2O. Usage is 100% and 90% for more then 4 hours, average 6.5 hours per night. Leak is 7.8 l/m, which is in acceptable range. Apnea Hypopnea Index is 0.4, which is normal. MEDICATIONS: Please see below During physical exam: GENERAL: A pleasant patient without any distress. VITAL SIGNS: Please see below, weight 275 pounds. HEENT: PERRLA, EOMI.low position of soft palate, Mallapati 4 . NECK: Supple. No JVD. LUNGS: Clear to percussion and to auscultation. Good air exchange. No wheezing or rhonchi. HEART: S1, S2 regular. ABDOMEN: Soft and nontender. Slightly obese EXTREMITIES: No clubbing or cyanosis. EXCEL DEVELOPER: Awake, alert, and oriented x3. No focal deficit. Impressions: 1. Obstructive sleep apnea-hypopnea syndrome. Patient demonstrated great compliance with treatment, benefiting from treatment. Patient feels gas in the stomach in the morning after using CPAP. 2. Obesity. 3. Hypertension. 4. History of depression. 5. History of anxiety. 6. History of headaches. 7. Acid reflux. Plan: 1. Continue using PAP equipment every night for the whole night. I decreased range of the pressure in CPAP unit to the range 5 to 9 cm of water. 2. To change air filter at least 1-2 times per month. 3. PAP unit should stay lower then position of the head. 4. Advised patient to remove all remaining water from humidifier canister daily and make it dry after each usage. Refill canister with fresh distilled water before each usage. 5. Sleep hygiene with regular time in bed for at least 8 hours. 6. Precautions related to driving. No driving if feel any sleepiness. 7. I will maintain prescription for PAP supplies including mask, tube, filters. 8. Follow up visit in 6 months or earlier if patient has any problems. 9. Watching and losing weight. Thank you very much for allowing me to participate in the management of your patient. Foster Denson MD, PhD, FAASM. Diplomat of [place] Board of Sleep Medicine, Sleep Medicine Board by [place] Board of Internal Medicine Hotel Room Attendant of [facility] [place] Objective - Vital Signs Vital Signs: Vital Signs Temp 98 F 11/30/23 15:39 Pulse 102 H 11/30/23 15:39 Resp 16 11/30/23 15:39 BP 132/85 11/30/23 15:39 Pulse Ox 96 11/30/23 15:39 FiO2 Home Medications: Home Medications Medication Instructions Recorded Confirmed Type Ibuprofen 400 mg PO Q6H PRN 11/13/16 03/01/23 History Omeprazole 40 mg PO DAILY 11/13/16 03/01/23 History Aspirin/Acetaminophen/Caffeine 1 each PO DAILY PRN 02/28/23 03/01/23 History [Excedrin Migraine Caplet] Escitalopram [Lexapro] 5 mg PO 1400 02/28/23 03/01/23 History hydroCHLOROthiazide 25 mg PO 1400 02/28/23 03/01/23 History
== END ==
LOC: 3 N SLEEP 15:22
PROVIDERS: ATTEND Internal Medicine
DX: G73.3 Myasthenic syndromes in other diseases classified elsewhere (principal); E66.9 Obesity, unspecified; I10 Essential (primary) hypertension; K21.9 Gastro-esophageal reflux disease without esophagitis; F41.9 Anxiety disorder, unspecified; F32.A Depression, unspecified; Z99.89 Dependence on other enabling machines and devices; Z86.69 Personal history of other diseases of the nervous system and sense organs; Z88.0 Allergy status to penicillin; Z87.891 Personal history of nicotine dependence
CPT/HCPCS: 99212

== ENCOUNTER → 2024-03-23 | Outpatient (CLI) | payer MEDICAID ==
--- NOTE | 2024-03-23 14:34 | XR ---
EXAMINATION TYPE: XR knee 4V LT DATE OF EXAM: 03/23/2024 CLINICAL HISTORY: pain TECHNIQUE: Three views of the left knee are obtained. Patellar sunrise view is submitted. COMPARISON: None. FINDINGS: There is no acute fracture/dislocation. The tri-compartment joint spaces appear within no rmal limits. The overlying soft tissue appears unremarkable. IMPRESSION: There is no acute fracture or dislocation ICD 10 NO FRACTURE, INITIAL EVALUATION [facility], , 03/23/2024 2:31 PM
[2024-03-23 20:21] LABS: Basophils # (A) 0.02 X 10*3/uL (0.00-0.10); Basophils % (A) 0.2 %; Eosinophils # (A) 0.27 X 10*3/uL (0.04-0.35); HCT 38.8 % (37.2-46.3); HGB 12.7 g/dL (12.0-15.0); Lymphocytes # (A) 3.33 X 10*3/uL (0.90-5.00); Lymphocytes % (A) 37.5 %; MCH 29.7 pg (27.0-32.0); MCHC 32.7 g/dL (32.0-37.0); MCV 90.9 FL (80.0-97.0); Monocytes # (A) 0.57 X 10*3/uL (0.20-1.00); Monocytes % (A) 6.4 %; NRBC Per 100 WBC 0 X 10*3/uL (0.00-0.01); Neutrophils # (A) 4.66 X 10*3/uL (1.80-7.70); Neutrophils % (A) 52.7 %; Platelet Count 401 X 10*3/uL (140-440); RBC 4.27 X 10*6/uL (4.10-5.20); RDW 13.9 % (11.5-14.5); WBC 8.87 X 10*3/uL (4.50-10.00)
[2024-03-23 20:59] LABS: % Iron Saturation 15.21 (12.00-45.00); ALT 64 U/L (8-44); AST 41 U/L (13-35); Albumin 4.4 g/dL (3.8-4.9); Albumin/Globulin Ratio 1.57 Ratio (1.60-3.17); Alkaline Phosphatase 85 U/L (41-126); BUN/Creat Ratio 13.88 Ratio (12.00-20.00); Blood Urea Nitrogen 11.1 mg/dL (9.0-27.0); Calcium 9.2 mg/dL (8.7-10.3); Carbon Dioxide 23.6 mmol/L (21.6-31.8); Chloride 103 mmol/L (96-109); Chol/HDL Ratio 2.74 Ratio; Ferritin 29.3 ng/mL (10.0-291.0); Globulin 2.8 g/dL (1.6-3.3); Glucose 100 mg/dL (70-110); Iron 66 UG/DL (50-170); LDL Cholesterol,Calculated 80.4 mg/dL (0.0-131.0); Magnesium 1.9 mg/dL (1.5-2.4); Potassium 3.9 mmol/L (3.5-5.5); Sodium 139 mmol/L (135-145); Total Bilirubin 0.3 mg/dL (0.3-1.2); Total Iron Binding Capacity 434 UG/DL (228-460); Total Protein 7.2 g/dL (6.2-8.2); Uric Acid 7.1 mg/dL (2.9-7.7)
== END | disposition home or self-care (01) ==
LOC: LABWHC1 13:00
PROVIDERS: ATTEND Internal Medicine
DX: Z00.00 Encounter for general adult medical examination without abnormal findings (principal); G43.909 Migraine, unspecified, not intractable, without status migrainosus; M25.562 Pain in left knee
CPT/HCPCS: 36415; 80053; 80061; 82607; 82728; 82746; 83540; 83550; 83735; 84443; 84550; 85025

== ENCOUNTER → 2024-05-25 | Outpatient (CLI) | payer MEDICAID ==
--- NOTE | 2024-05-25 10:42 | US ---
EXAMINATION TYPE: US abdomen complete DATE OF EXAM: 05/25/2024 COMPARISON: NONE CLINICAL INDICATION: Female, 33 years old with history of R74.01 BRITTNEY LEVEL ELEVATE R10.84 ABD PAIN; e levated liver enzymes. TECHNIQUE: Grayscale and color Doppler imaging of the abdomen was performed. FINDINGS: EXAM MEASUREMENTS: Liver Length: 17.6 cm Gallbladder Wall: .2 cm CBD: 0.3 cm, color Doppler imaging was utilized to isolate the common bile duct for measurement. Spleen: 9.1 cm Right Kidney: 9.9 x 3.8 x 3.8 cm Left Kidney: 10.1 x 5.3 x 4.5 cm Pancreas: Obscured by bowel gas Liver: Increased attenuation hypoechoic area adjacent to gallbladder 2.3 x 2.5 x 2.6 cm. Gallbladder: No stones seen Evidence for sonographic Leblanc's sign: No CBD: wnl Spleen: wnl Right Kidney: No hydronephrosis or masses seen Left Kidney: No hydronephrosis or masses seen Upper IVC: wnl Abd Aorta: wnl The liver is homogenous with increased echotexture. The intrahepatic portion of the IVC and proximal abdominal aorta are within normal limits. There is no evidence of cholelithiasis. Common bile duct is unremarkable. The visualized portions of the pancreas are homogenous. The spleen is unremarkabl e. Kidneys are symmetric and free of hydronephrosis. No renal lesions are seen. IMPRESSION: Hepatic steatosis focal fatty sparing. [facility], , 05/25/2024 10:40 AM
== END | disposition home or self-care (01) ==
LOC: RADUSWWP 08:37
PROVIDERS: ATTEND Internal Medicine
DX: K76.0 Fatty (change of) liver, not elsewhere classified (principal); R74.01 Elevation of levels of liver transaminase levels
CPT/HCPCS: 76700

== ENCOUNTER → 2024-06-14 | Outpatient (CLI) | payer MEDICAID ==
[2024-06-14 14:28] VITALS: BP 148/85; PULSE 94; RESP 12; TEMP 98
--- NOTE | 2024-06-14 14:43 | P.PROGSL ---
Subjective DATE: 06/14/2024 FOLLOW UP VISIT. Patient with obstructive sleep apnea hypopnea syndrome return to sleep center for follow-up visit. Information from previous visit have been reviewed. Patient is using PAP equipment every night for the whole night, getting PAP supplies in time. The patient does not have significant problems with the mask, PAP unit and humidification. [place] sleepiness scale is 5, which is normal. I checked information from PAP unit. PAP unit pressure 5-9, average 9 cm H2O. Usage is 90% for more then 4 hours, average 6.3 hours per night. Leak is 4l/m, which is in acceptable range. Apnea Hypopnea Index is 0.7, which is normal. MEDICATIONS have been reviewed, please see below. During physical exam: GENERAL: A pleasant patient without any distress. VITAL SIGNS: Please see below, weight is 271 lbs. HEENT: PERRLA, EOMI.low position of soft palate, Mall[place]ati 4 . NECK: Supple. No JVD. LUNGS: Clear to percussion and to auscultation. Good air exchange. No wheezing or rhonchi. HEART: S1, S2 regular. ABDOMEN: Soft and nontender. Slightly obese EXTREMITIES: No clubbing or cyanosis. TELEPHONE MAINTAINER: Awake, alert, and oriented x3. No focal deficit. Impressions: 1. Obstructive sleep apnea-hypopnea syndrome. Patient demonstrated great compliance with treatment, benefiting from treatment. No any discomfort in the stomach area while using CPAP after pressure was adjusted during previous visit. 2. Obesity, BMI 43.7, patient lost 4 pounds comparing with previous visit. 3. Hypertension. 4. History of depression. 5. History of anxiety. 6. Acid reflux. 7. History of headaches. Plan: 1. Continue using PAP equipment every night for the whole night. 2. Sleep hygiene with regular time in bed for at least 7.5-8 hours 3. PAP unit should stay lower then position of the head. 4. Advised patient to remove all remaining water from humidifier canister daily and make it dry after each usage. Refill canister with fresh distilled water before each usage. 5. Watching weight. 6. Precautions related to driving. No driving if feel any sleepiness. 7. I will maintain prescription for PAP supplies including mask, tube, filters. 8. Follow up visit in 8 months or earlier if patient has any problems. Thank you very much for allowing me to participate in the management of your patient. Foster Denson MD, PhD, FAASM. Diplomat of [place] [employer], Sleep Medicine Board by [place] [employer] of [facility] [place] Objective - Vital Signs Vital Signs: Vital Signs Temp 98.0 F 06/14/24 14:26 Pulse 94 06/14/24 14:26 Resp 12 06/14/24 14:26 BP 148/85 06/14/24 14:26 Pulse Ox 99 06/14/24 14:26 FiO2 Intake & Output 06/13/24 06/14/24 06/14/24 18:59 06:59 18:59 Weight 122.924 kg Home Medications: Home Medications Medication Instructions Recorded Confirmed Type Ibuprofen 400 mg PO Q6H PRN 11/13/16 06/14/24 History Omeprazole 40 mg PO DAILY 11/13/16 06/14/24 History Aspirin/Acetaminophen/Caffeine 1 each PO DAILY PRN 02/28/23 06/14/24 History [Excedrin Migraine Caplet] Escitalopram [Lexapro] 5 mg PO 1400 02/28/23 06/14/24 History hydroCHLOROthiazide 25 mg PO 1400 02/28/23 06/14/24 History Acetaminophen/Pamabrom [Midol 1 each PO 06/14/24 History Caplet]
== END ==
LOC: 3 N SLEEP 13:46
PROVIDERS: ATTEND Internal Medicine
DX: G47.33 Obstructive sleep apnea (adult) (pediatric) (principal); E66.9 Obesity, unspecified; I10 Essential (primary) hypertension; F32.A Depression, unspecified; F41.9 Anxiety disorder, unspecified; K21.9 Gastro-esophageal reflux disease without esophagitis; Z86.69 Personal history of other diseases of the nervous system and sense organs; Z99.89 Dependence on other enabling machines and devices; Z68.41 Body mass index [BMI] 40.0-44.9, adult; Z88.0 Allergy status to penicillin; Z87.891 Personal history of nicotine dependence
CPT/HCPCS: 99212